=== PATIENT | male | born 1990 | race Asian ===

== ENCOUNTER 2017-06-22 21:42 | Emergency (ER) | payer SELFPAY ==
--- NOTE | 2017-06-22 22:54 | ED Physician Chart ---
ED Chief Complaint/HPI - Patient Information Date Seen:: 06/22/17 Time Seen:: 22:53 Chief Complaint:: Abdominal pain and tightness of throat History of Present Illness:: 26 yo male developed hives 3 days ago and saw a physician who prescribed ranitidine 300mg and prednisone 40mg which caused dizziness and epigastric pain , tightness of throat. The next day, methylprednisolone was prescribed and patient took one dose. He continued to feel abdominal bloating, burping, tremor , and tightness of throat. He denied N/V. Allergies:: Allergies Allergy/AdvReac Type Severity Reaction Status Date / Time SEAFOOD Allergy Uncoded 06/22/17 22:21 Vitals:: Vital Signs - 8 hr 06/22/17 22:26 Temp 97.8 F HR 83 RR 16 O2 Sat % 98 ED Review of Systems - Review of Systems General/Constitutional: No fever Skin: No skin lesions Head: No headache Eyes: No pain ENT: No nasal drainage Neck: No neck pain Cardio Vascular: No chest pain Pulmonary: No SOB GI: No nausea, No vomiting Musculoskeletal: No bone or joint pain Neurological: No focal symptoms ED Past Medical History - Past Medical History Past Medical History: PUD/GERD Social History: Smoker, No Alcohol, No Drug Use Psychiatricy History: Other (Anxiety) Family Medical History - Family Member Father Hx Family Hypertension: Yes ED Physical Exam - Physical Examination General/Constitutional: Awake Head: Atraumatic Eyes: PERRL Skin: No skin lesions ENMT: Nasal exam nl, Oropharynx nl Neck: No nuchal rigidity Respiratory: No Wheeze/Rhonchi/Rales Cardio Vascular: RRR, No murmur, gallop, rubs, NL S1 S2 Other GI comments:: Epigatric tenderness Extremities: normal strength in all extremities Neuro/Psych: No focal deficits ED Assessment - Assessment General Assessment: GERD Gastritis Assessment/Comments:: D/c steroids Pantoprazole 40mg IV D/c home F/u PCP or return to ER if symptoms worsen ED Septic Shock - . Is Septic Shock (SBP<90, OR Lactate>4 mmol\L) present?: No - <6hrs of presentation: Vital Signs: Vital Signs - 8 hr 06/22/17 22:26 Temp 97.8 F HR 83 RR 16 O2 Sat % 98 ED Reassessment (Disposition) - Reassessment Reassessment Condition:: Improved - Patient Disposition Discharge/Transfer:: Home ED Discharge Plan - Patient Disposition Admit/Discharge/Transfer: PT DISCHARGED HOME Condition at Disposition: Stable Instructions: Gastroesophageal Reflux Disease, Adult
== END 2017-06-23 01:00 | disposition home or self-care (01) ==
LOC: ER 21:42
DX: R10.13 Epigastric pain (principal); R07.0 Pain in throat; K21.9 Gastro-esophageal reflux disease without esophagitis; Z87.11 Personal history of peptic ulcer disease
CPT/HCPCS: 99284; 96374; C9113; Z7502